=== PATIENT | male | born 1965 | race Caucasian/White ===

== ENCOUNTER 2018-09-18 08:12 | Observation (INO) | payer OTHER, SELFPAY ==
[2018-09-18] VITALS (45 sets, daily range): BP systolic 99–118; BP diastolic 62–80; PULSE 52–84; RESP 11–21; TEMP 36–36.8; O2SAT 94–100
--- NOTE | 2018-09-18 08:24 | DI.CT_ITS ---
SYMPTOM/DIAGNOSIS: CHEST PAIN AND SOB CT CHEST: CT angiography was performed with multi slice acquisition and multi planar and 3D reconstruction. PE CT scan of the chest was performed. There is no evidence of a pulmonary embolus. The thoracic aorta is of normal caliber. No aneurysm or dissection is seen. Heart size is within normal limits. No significant pericardial effusion seen. No findings to suggest right ventricular dysfunction present. No thoracic adenopathy, pleural effusion or pneumothorax is identified. Emphysematous changes are present in the lungs. Bilateral dependent atelectatic changes are seen. Within the upper abdomen there is a 3.1 cm hypodense mass arising from the superior pole of the left kidney. Hounsfield units are 20-24. No acute osseous lesions are identified. IMPRESSION: 1. No evidence of a pulmonary embolus, thoracic aortic aneurysm or dissection. 2. 3.1 cm hypodense mass arising from the superior pole of the left kidney. Further evaluation with renal ultrasound is recommended.
--- NOTE | 2018-09-18 08:31 | ED.GENADUL_ITS ---
Discharge Plan Discharge Details Chief Complaint: Chest Pain Reason For Visit: SAM Primary Care Provider: Russ Hannah ED Provider: Dwaine Sanches Home Meds and New Rx's Prescriptions: No Action trazodone 100 mg Tablet 100 mg PO QPM PRNRF: 0 pantoprazole 40 mg Tablet,Delayed Release (Dr/Ec) 40 mg PO DAILY PRNRF: 0 ibuprofen 600 mg Tablet 600 mg PO BID PRNRF: 0 quetiapine 50 mg Tablet Extended Release 24 Hr 50 mg PO QPM RF: 0 loratadine 10 mg Capsule 10 mg PO DAILY PRNRF: 0 Medical Decision Making 8:35 --52-year-old male former smoker, prisoner, here with persistent chest pain over the past 3 days with associated shortness of breath. Hypoxic today, responding to oxygen administration. 1 nitroglycerin sublingual and aspirin was given by EMS and pain has improved but is still present. Concern for ACS. ECG reviewed and interpreted by me: Normal sinus rhythm 70 bpm, normal axis, T wave inversions noted in V1 and V2, nondiagnostic. Plan to check troponin. Consider acute pulmonary embolism. Patient does have some tenderness although no swelling in his left lower extremity. He does have associated shortness of breath and hypoxia. Plan to proceed to CT chest PE protocol. Will hold additional nitro given BP. 12:00 -- Labs reviewed. CT of the chest interpreted by radiology:IMPRESSION: 1. No evidence of pulmonary embolus to the segmental level. 2. No aneurysm of the aorta. 3. No dissection of the aorta. 4. 3.1 cm mass in the left kidney 24 Hounsfield units. Recommend surgery. The Dictated and Authenticated by: Yasir Al MD. Patient reassessed multiple times. Hemodynamically stable. Patient no longer hypoxic off O2. Initial trop neg - would expect to be elevated at this point given symptom duration. Findings not definitively consistent with ACS. Plan to admit for further diagnostic testing including serial enzymes. I call and spoke with Dr. Mcclellan who will admit. He requested bridging orders be placed to the floor. Care transitioned to Dr. Mcclellan. Second trop pending at time of admission. HPI General Mode of arrival: EMS . Date/Time Provider Initiated Documentation: 09/18/18 09:03 . Limitations to Documentation: no limitations . Information obtained by: EMS . HPI Narrative: 52-year-old male former smoker with history of GERD presents with a chief complaint of chest pain. Patient notes he has had chest pain for the past 3 days. Pain is been fairly persistent but worsening. Pain is localized to his anterior chest. Pain feels like a heaviness. Currently rated 5/10. Pain was worse this morning and was given aspirin at the correctional facility and another dose of aspirin and nitroglycerin sublingual by EMS. No modifiers to pain. He also has associated shortness of breath. EMS note that he was hypoxic in the upper 80s prior to oxygen administration by correctional facility. No recent long distance travel, no immobility, no recent surgery. Related Data Home Medications Medication Instructions Recorded Confirmed ibuprofen 600 mg PO BID PRN 09/18/18 09/18/18 loratadine 10 mg PO DAILY PRN 09/18/18 09/18/18 pantoprazole 40 mg PO DAILY PRN 09/18/18 09/18/18 quetiapine 50 mg PO QPM 09/18/18 09/18/18 trazodone 100 mg PO QPM PRN 09/18/18 09/18/18 Allergies Allergy/AdvReac Type Severity Reaction Status Date / Time No Known Allergies Allergy Unverified 09/18/18 08:29 General Stated Complaint: Chest Pain ADRIAN: 2 Review of Systems Review of Systems All systems reviewed & are unremarkable except as noted in HPI and below Cardiovascular Reports chest pain and Reports dyspnea Respiratory Reports cough and Reports dyspnea PFSH Medical History GERD (gastroesophageal reflux disease) (Chronic) Social History Smoking/Tobacco Use Status: Former Tobacco Use Exam Const General: cooperative and no acute distress [facility] Head: normocephalic and atraumatic Mouth: moist mucous membranes Eyes Conjunctivae: normal conjunctivae Sclera: normal sclerae EOM: EOM intact bilaterally Neck Neck: trachea midline and supple Resp Auscultation: clear to auscultation bilaterally, no rales, no rhonchi and no wheezes Cardio Jugular venous pressure: no JVD Rate: regular rate and not tachycardic Rhythm: regular rhythm GI Palpation: soft, not firm, no guarding, no masses, not rigid and nontender Skin General skin exam: no rashes or lesions noted Neuro General: alert, awake, oriented x3 and tone normal Extrem General: calf tenderness on the left and no edema Psych Appearance: grossly normal Mental Status: mental status grossly normal Speech and Movement: speech and movement normal Course Vital Signs Temperature 36.5 C 09/18/18 08:18 Pulse 68 09/18/18 08:18 Respiratory Rate 15 09/18/18 08:18 Blood Pressure 118/80 09/18/18 08:18 Pulse Oximetry 99 09/18/18 08:18 Temperature 36.5 C 09/18/18 08:18 Temperature Source Temporal Artery Scan 09/18/18 08:18 Pulse 68 09/18/18 08:18 Respiratory Rate 15 09/18/18 08:18 Respiratory Effort Non-Labored 09/18/18 08:26 Blood Pressure 118/80 09/18/18 08:18 Blood Pressure Position Supine 09/18/18 08:18 Pulse Oximetry 99 09/18/18 08:18 Oxygen Delivery Method Room Air 09/18/18 08:18 Oxygen Flow Rate 0 09/18/18 08:18 Pain Level 5 09/18/18 08:18
[2018-09-18] MEDS: Normal Saline Flush 10 ML SYR IVP (08:37)
[2018-09-18 08:39] LABS: Absolute Basophil Count 0.05 k/cumm (0.0-0.2); Absolute Lymphocyte Count 1.91 k/cumm (1.2-3.4); Absolute Monocyte Count 0.44 k/cumm (0.11-0.7); Absolute Neutrophil Count 2.02 k/cumm (1.2-6.7); Basophils % 1.1; Eosinophils % 2.2; HCT 41.8 % (40.0-50.0); HGB 13.9 g/dL (13.5-17.5); Lymphocytes % 42.3; Mean Corp. HGB Concentration 33.3 g/dL (32.0-36.0); Mean Corpuscular Hemoglobin 30.9 pg (27.0-33.0); Mean Corpuscular Volume 92.9 fL (80-95); Monocytes % 9.7; Neutrophils % 44.7; Platelet Count 186 x1000/uL (130-400); RBC Distribution Width 13.4 % (11.8-14.1); White Blood Cell Count 4.52 k/cumm (4.4-10.8)
[2018-09-18 08:53] LABS: ALT 24 U/L (12-78); AST 12 U/L (15-37); Albumin 3.6 g/dL (3.4-5.0); Alkaline Phosphatase 72 U/L (46-116); Anion Gap 7.1 mmol/L (3-11); BUN 11 mg/dL (7-18); Bilirubin, Total 0.6 mg/dL (0.2-1.0); CO2 30.9 mmol/L (21.0-32.0); CREATININE 0.93 mg/dL (0.70-1.30); Calcium 8.7 mg/dL (8.5-10.1); Chloride 105 mmol/L (98-107); Glucose 111 mg/dL (70-100); Magnesium 1.7 mg/dL (1.8-2.4); Potassium 3.6 mmol/L (3.5-5.1); Sodium 143 mmol/L (136-145); Total Protein 6.6 g/dL (6.4-8.2); Troponin I < 0.02 ng/mL (0.00-0.06)
[2018-09-18] MEDS: Omnipaque 350 MG/ML 100 ML BTL IJ (09:40)
--- NOTE | 2018-09-18 09:55 | DI.VRAD_ITS ---
EXAM: CT Angiography Chest With Contrast EXAM DATE/TIME: 09/18/2018 8:30 AM CLINICAL HISTORY: 52 years old, male; Pain and signs and symptoms; Shortness of breath; Chest pain; Type not specified TECHNIQUE: Axial computed tomographic angiography images of the chest with intravenous contrast using CT angiography protocol. All CT scans at this facility use at least one of these dose optimization techniques: automated exposure control; mA and/or kV adjustment per patient size (includes targeted exams where dose is matched to clinical indication); or iterative reconstruction. Coronal and sagittal reformatted images were created and reviewed. MIP reconstructed images were created and reviewed. CONTRAST: 81 ml of Omnipaque 350 administered intravenously. COMPARISON: No relevant prior studies available. FINDINGS: Pulmonary arteries: No evidence of pulmonary embolus to the segmental level. Aorta: No aneurysm of the aorta. No dissection of the aorta. Lungs: Mild panlobular emphysematous changes Bibasilar atelectasis Pleural space: Normal. No pneumothorax. No pleural effusion. Heart: Normal. No cardiomegaly. No pericardial effusion. Kidneys and ureters: 3.1 cm mass in the left kidney 24 Hounsfield units. Lymph nodes: Unremarkable. No enlarged lymph nodes. Bones/joints: Unremarkable. No acute fracture. Soft tissues: Unremarkable. IMPRESSION: 1. No evidence of pulmonary embolus to the segmental level. 2. No aneurysm of the aorta. 3. No dissection of the aorta. 4. 3.1 cm mass in the left kidney 24 Hounsfield units. Recommend surgery. The Dictated and Authenticated by: Yasir Al MD. Ordering:SILVIANO Isidro MD
[2018-09-18 11:10] LABS: NT-proBNP 86 pg/mL
[2018-09-18 12:34] LABS: Troponin I 0.02 ng/mL (0.00-0.06)
[2018-09-18 13:20] LABS: *AMPHETAMINES SCREEN URINE Negative (Negative); *BARBITURATES SCREEN URINE Negative (Negative); *BENZODIAZEPINES SCREEN URINE Negative (Negative); Cannabinoids THC Negative (Negative); Cocaine Screen,Urine Negative (Negative); METHADONE URINE SCREEN Negative (Negative); OPIATES URINE SCREEN Negative (Negative)
[2018-09-18 13:25] LABS: Tricyclic Antidepressants Negative (Negative)
[2018-09-18] MEDS: MAGNESIUM SULFATE 2 GM/50 ML BAG IVPB (15:13)
--- NOTE | 2018-09-18 17:33 | W.PM.HP.N ---
Date of service: 09/18/18 Time of Service: 17:34 Assessment and Plan (1) Chest pain: Current visit: Yes Status: Acute 52-year-old male with recent smoking and new exertional chest pain with dyspnea on exertion raises concern for acute coronary syndrome. Initial evaluation with EKG and troponin x2 in the emergency room is reassuring, however. The patient's initial hypoxia is probably the most concerning aspect of this case. CT of the chest was appropriate and did not show pulmonary emboli, though it was not clear down to the subsegmental level. Patient's history and drug screen not show drug use that could cause acute pulmonary edema that can resolve quickly. I am not sure how to explain the marked hypoxia that resolved, but I do think it prudent to observe the patient given this presentation. (2) Dysphagia: Current visit: Yes Status: Acute Several factors point to esophageal cause of the pain. Patient himself relates his symptoms to the odynophagia and dysphagia he has been experiencing over the past several months. He has had a laryngeal evaluation, but I be more concerned for the esophagus. He has not responded to PPI therapy. He is certainly at risk with binge drinking and smoking for esophageal pathology including malignancy, though no masses were seen on the CT scan of the chest. We will try GI cocktail and possibly Carafate. Consider EGD either acutely or as an outpatient. Patient with hypoxia raises concern for aspiration, though the patient does not describe lonnie aspiration. Will consider swallow evaluation or barium swallow. (3) Smoker: Current visit: Yes Status: Acute Patient is a long-term smoker, and there is a good chance he is still smoking though he does not endorse this in his care shoulder. Will encourage long-term cessation and offer nicotine if he would like it. (4) DVT prophylaxis: Current visit: Yes Status: Acute Lovenox (5) Discharge planning issues: Current visit: Yes Status: Acute Full code. Patient is shackled to the bed with third officer in the room. History of Present Illness Narrative: 52-year-old man with no known cardiac history but several months of difficult and painful swallowing presents from [facility] with progressively worsening chest pain and shortness of breath over the past 2-3 days. Patient describes the pain as midsternal heaviness. It associated with feeling like being he is being choked, dyspnea on exertion, lightheadedness, and some intermittent nausea. There is no radiation. It is constant, and he feels like he cannot get comfortable. It is worse lying flat and better when sitting up. It can be worse when he swallows, and he feels like he is going to choke. He has not had this kind of chest pain before. On presentation in the emergency room, he was hypoxic in the mid 80s on room air. This improved with submental oxygen, but the time he went to the floor he had normal oxygen saturation on room air. He denies feeling anything abnormal, including drugs recently. Patient relates her symptoms to problems swallowing he has had over the past several months. He has been treated for GERD, as he has epigastric discomfort, but he states the proton pump inhibitor just makes it worse and he has been refusing it. He was seen by ENT, who has seen for previous issues with recurrent ear infections, and had a laryngoscopy which was unrevealing per her report. He states he feels like solids sometimes gets stuck, and food is not going down well after he swallows. He states he is lost 17 pounds in the past year and does not eat as much. Review of Systems Review of Systems As above. No fevers or chills. Weight loss as above. Describes general fatigue compared to his baseline. He gets headaches at times, no change recently. No focal numbness or weakness. No sore throat or sores in the mouth. He does have a history of recurrent ear infections with poor hearing in his right ear. Does have occasional cough, and has coughed up blood twice in the past few weeks. He does feel like his heart races with the chest pain. No vomiting. No diarrhea constipation. No blood in the stool or melena. No dysuria or hematuria. No flank pain or new joint pain. No rash or other skin lesions. [facility] Medical History Dysphagia (Acute) GERD (gastroesophageal reflux disease) (Chronic) Surgical History History of tonsillectomy and adenoidectomy (Acute) Social History Smoking/Tobacco Use Status: Former Tobacco Use how long ago did patient quit smokin months alcohol intake: former substance use type: former substance user additional social history: [facility], grew up in [facility] Has a long-term female partner with whom he has 1 child. Has another child with a different partner. 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 Previously drank 12 pack a night on the weekends. Formerly used marijuana, denies IV drug use or inhaled drugs. Meds Home Medications Medication Instructions Recorded Confirmed Type ibuprofen 600 mg PO BID PRN 09/18/18 09/18/18 History loratadine 10 mg PO DAILY PRN 09/18/18 09/18/18 History pantoprazole 40 mg PO DAILY PRN 09/18/18 09/18/18 History quetiapine 50 mg PO QPM 09/18/18 09/18/18 History trazodone 100 mg PO QPM PRN 09/18/18 09/18/18 History Allergies Allergy/AdvReac Type Severity Reaction Status Date / Time No Known Allergies Allergy Unverified 09/18/18 08:29 Exam Narrative Exam Narrative: General: Alert and oriented, speaking in full sentences, no acute distress. HEENT: Normocephalic, atraumatic. Pupils equal round reactive to light with extraocular motion intact. Conjunctive are clear with no icterus. Mucous membranes are moist with oropharynx benign. Neck is supple with no lymphadenopathy or other masses. Normal thyroid exam. Lungs: Clear to auscultation bilaterally with normal effort. Cardiovascular: regular rate and rhythm with no murmurs gallops or rubs. Abdomen: Nondistended. Active bowel sounds. Soft, mildly tender in the epigastrium, but no organomegaly. Extremities show no cyanosis clubbing or edema. No redness or swelling of the joints. Skin has no rashes or other skin lesions. Nose no acute bruising. Neurologic: Cranial nerves grossly intact including movement of palate/uvula. Normal speech and coordination. Normal movement in [address] Chest with contrast: 1. No evidence of pulmonary embolus to the segmental level. 2. No aneurysm of the aorta. 3. No dissection of the aorta. 4. 3.1 cm mass in the left kidney 24 Hounsfield units. Recommend surgery. EKG: NSR, no ST-T abnormalities Results Labs : 09/18/18 08:20 09/18/18 08:20 Laboratory Results - last 24 hr 09/18/18 09/18/18 09/18/18 08:20 08:20 08:20 WBC 4.52 RBC 4.50 Hgb 13.9 Hct 41.8 MCV 92.9 MCH 30.9 MCHC 33.3 RDW 13.4 Plt Count 186 MPV 10.0 Immature Gran % 0.0 Neutrophils % 44.7 Lymphocytes % 42.3 Monocytes % 9.7 Eosinophils % 2.2 Basophils % 1.1 Absolute Neutrophils 2.02 Absolute Lymphocytes 1.91 Absolute Monocytes 0.44 Absolute Eosinophils 0.10 Absolute Basophils 0.05 Sodium 143 Potassium 3.6 Chloride 105 Carbon Dioxide 30.9 Anion Gap 7.1 BUN 11 Creatinine 0.93 Estimated GFR/1.73 m2 >= 60.00 Glucose 111 H Calcium 8.7 Magnesium 1.7 L Total Bilirubin 0.6 AST 12 L ALT 24 Alkaline Phosphatase 72 Troponin I < 0.02 NT-Pro-B Natriuret Pep 86 Total Protein 6.6 Albumin 3.6 Urine Opiates Screen Urine Methadone Screen Ur Barbiturates Screen Ur Tricyclics Screen Ur Amphetamines Screen U Benzodiazepines Scrn Urine Cocaine Screen Ur THC Screen 09/18/18 09/18/18 12:11 13:00 WBC RBC Hgb Hct MCV MCH MCHC RDW Plt Count MPV Immature Gran % Neutrophils % Lymphocytes % Monocytes % Eosinophils % Basophils % Absolute Neutrophils Absolute Lymphocytes Absolute Monocytes Absolute Eosinophils Absolute Basophils Sodium Potassium Chloride Carbon Dioxide Anion Gap BUN Creatinine Estimated GFR/1.73 m2 Glucose Calcium Magnesium Total Bilirubin AST ALT Alkaline Phosphatase Troponin I 0.02 NT-Pro-B Natriuret Pep Total Protein Albumin Urine Opiates Screen Negative Urine Methadone Screen Negative Ur Barbiturates Screen Negative Ur Tricyclics Screen Negative Ur Amphetamines Screen Negative U Benzodiazepines Scrn Negative Urine Cocaine Screen Negative Ur THC Screen Negative Last Vital Signs Temp 36.2 C L 09/18/18 15:58 Pulse 56 L 09/18/18 15:58 Resp 13 09/18/18 15:58 BP 109/68 09/18/18 15:58 Pulse Ox 97 09/18/18 15:58
--- NOTE | 2018-09-18 17:52 | HPE_ITS ---
Date of service: 09/18/18 Time of Service: 17:34 Assessment and Plan (1) Chest pain: Current visit: Yes Status: Acute 52-year-old male with recent smoking and new exertional chest pain with dyspnea on exertion raises concern for acute coronary syndrome. Initial evaluation with EKG and troponin x2 in the emergency room is reassuring, however. The patient's initial hypoxia is probably the most concerning aspect of this case. CT of the chest was appropriate and did not show pulmonary emboli, though it was not clear down to the subsegmental level. Patient's history and drug screen not show drug use that could cause acute pulmonary edema that can resolve quickly. I am not sure how to explain the marked hypoxia that resolved, but I do think it prudent to observe the patient given this presentation. (2) Dysphagia: Current visit: Yes Status: Acute Several factors point to esophageal cause of the pain. Patient himself relates his symptoms to the odynophagia and dysphagia he has been experiencing over the past several months. He has had a laryngeal evaluation, but I be more concerned for the esophagus. He has not responded to PPI therapy. He is certainly at risk with binge drinking and smoking for esophageal pathology including malignancy, though no masses were seen on the CT scan of the chest. We will try GI cocktail and possibly Carafate. Consider EGD either acutely or as an outpatient. Patient with hypoxia raises concern for aspiration, though the patient does not describe lonnie aspiration. Will consider swallow evaluation or barium swallow. (3) Smoker: Current visit: Yes Status: Acute Patient is a long-term smoker, and there is a good chance he is still smoking though he does not endorse this in his care shoulder. Will encourage long-term cessation and offer nicotine if he would like it. (4) DVT prophylaxis: Current visit: Yes Status: Acute Lovenox (5) Discharge planning issues: Current visit: Yes Status: Acute Full code. Patient is shackled to the bed with state patrol officer in the room. History of Present Illness Narrative: 52-year-old man with no known cardiac history but several months of difficult and painful swallowing presents from [facility] with progressively worsening chest pain and shortness of breath over the past 2-3 days. Patient describes the pain as midsternal heaviness. It associated with feeling like being he is being choked, dyspnea on exertion, lightheadedness, and some intermittent nausea. There is no radiation. It is constant, and he feels like he cannot get comfortable. It is worse lying flat and better when sitting up. It can be worse when he swallows, and he feels like he is going to choke. He has not had this kind of chest pain before. On presentation in the emergency room, he was hypoxic in the mid 80s on room air. This improved with submental oxygen, but the time he went to the floor he had normal oxygen saturation on room air. He denies feeling anything abnormal, including drugs recently. Patient relates her symptoms to problems swallowing he has had over the past several months. He has been treated for GERD, as he has epigastric discomfort, but he states the proton pump inhibitor just makes it worse and he has been refusing it. He was seen by ENT, who has seen for previous issues with recurrent ear infections, and had a laryngoscopy which was unrevealing per her report. He states he feels like solids sometimes gets stuck, and food is not going down well after he swallows. He states he is lost 17 pounds in the past year and does not eat as much. Review of Systems Review of Systems As above. No fevers or chills. Weight loss as above. Describes general fatigue compared to his baseline. He gets headaches at times, no change recently. No focal numbness or weakness. No sore throat or sores in the mouth. He does have a history of recurrent ear infections with poor hearing in his right ear. Does have occasional cough, and has coughed up blood twice in the past few weeks. He does feel like his heart races with the chest pain. No vomiting. No diarrhea constipation. No blood in the stool or melena. No dysuria or hematuria. No flank pain or new joint pain. No rash or other skin lesions. [facility] Medical History Dysphagia (Acute) GERD (gastroesophageal reflux disease) (Chronic) Surgical History History of tonsillectomy and adenoidectomy (Acute) Social History Smoking/Tobacco Use Status: Former Tobacco Use how long ago did patient quit smokin months alcohol intake: former substance use type: former substance user additional social history: Currently at [facility] farmKris N[facility]z lived in [place], grew up in [facility] [place] [facility] Has a long-term female partner with whom he has 1 child. Has another child with a different partner. Before incarceration, was working in [employer] Has [id number] history of smoking, states quit when he was incarcerated, but admits he has to be careful with what he tells me in front of the government guard. Previously drank 12 pack a night on the weekends. Formerly used marijuana, denies IV drug use or inhaled drugs. Meds Home Medications Medication Instructions Recorded Confirmed Type ibuprofen 600 mg PO BID PRN 09/18/18 09/18/18 History loratadine 10 mg PO DAILY PRN 09/18/18 09/18/18 History pantoprazole 40 mg PO DAILY PRN 09/18/18 09/18/18 History quetiapine 50 mg PO QPM 09/18/18 09/18/18 History trazodone 100 mg PO QPM PRN 09/18/18 09/18/18 History Allergies Allergy/AdvReac Type Severity Reaction Status Date / Time No Known Allergies Allergy Unverified 09/18/18 08:29 Exam Narrative Exam Narrative: General: Alert and oriented, speaking in full sentences, no acute distress. HEENT: Normocephalic, atraumatic. Pupils equal round reactive to light with extraocular motion intact. Conjunctive are clear with no icterus. Mucous membranes are moist with oropharynx benign. Neck is supple with no lymphadenopathy or other masses. Normal thyroid exam. Lungs: Clear to auscultation bilaterally with normal effort. Cardiovascular: regular rate and rhythm with no murmurs gallops or rubs. Abdomen: Nondistended. Active bowel sounds. Soft, mildly tender in the epigastrium, but no organomegaly. Extremities show no cyanosis clubbing or edema. No redness or swelling of the joints. Skin has no rashes or other skin lesions. Nose no acute bruising. Neurologic: Cranial nerves grossly intact including movement of palate/uvula. Normal speech and coordination. Normal movement in [address] Chest with contrast: 1. No evidence of pulmonary embolus to the segmental level. 2. No aneurysm of the aorta. 3. No dissection of the aorta. 4. 3.1 cm mass in the left kidney 24 Hounsfield units. Recommend surgery. EKG: NSR, no ST-T abnormalities Results Labs : 09/18/18 08:20 09/18/18 08:20 Laboratory Results - last 24 hr 09/18/18 09/18/18 09/18/18 08:20 08:20 08:20 WBC 4.52 RBC 4.50 Hgb 13.9 Hct 41.8 MCV 92.9 MCH 30.9 MCHC 33.3 RDW 13.4 Plt Count 186 MPV 10.0 Immature Gran % 0.0 Neutrophils % 44.7 Lymphocytes % 42.3 Monocytes % 9.7 Eosinophils % 2.2 Basophils % 1.1 Absolute Neutrophils 2.02 Absolute Lymphocytes 1.91 Absolute Monocytes 0.44 Absolute Eosinophils 0.10 Absolute Basophils 0.05 Sodium 143 Potassium 3.6 Chloride 105 Carbon Dioxide 30.9 Anion Gap 7.1 BUN 11 Creatinine 0.93 Estimated GFR/1.73 m2 >= 60.00 Glucose 111 H Calcium 8.7 Magnesium 1.7 L Total Bilirubin 0.6 AST 12 L ALT 24 Alkaline Phosphatase 72 Troponin I < 0.02 NT-Pro-B Natriuret Pep 86 Total Protein 6.6 Albumin 3.6 Urine Opiates Screen Urine Methadone Screen Ur Barbiturates Screen Ur Tricyclics Screen Ur Amphetamines Screen U Benzodiazepines Scrn Urine Cocaine Screen Ur THC Screen 09/18/18 09/18/18 12:11 13:00 WBC RBC Hgb Hct MCV MCH MCHC RDW Plt Count MPV Immature Gran % Neutrophils % Lymphocytes % Monocytes % Eosinophils % Basophils % Absolute Neutrophils Absolute Lymphocytes Absolute Monocytes Absolute Eosinophils Absolute Basophils Sodium Potassium Chloride Carbon Dioxide Anion Gap BUN Creatinine Estimated GFR/1.73 m2 Glucose Calcium Magnesium Total Bilirubin AST ALT Alkaline Phosphatase Troponin I 0.02 NT-Pro-B Natriuret Pep Total Protein Albumin Urine Opiates Screen Negative Urine Methadone Screen Negative Ur Barbiturates Screen Negative Ur Tricyclics Screen Negative Ur Amphetamines Screen Negative U Benzodiazepines Scrn Negative Urine Cocaine Screen Negative Ur THC Screen Negative Last Vital Signs Temp 36.2 C L 09/18/18 15:58 Pulse 56 L 09/18/18 15:58 Resp 13 09/18/18 15:58 BP 109/68 09/18/18 15:58 Pulse Ox 97 09/18/18 15:58
[2018-09-18] MEDS: Sucralfate 1 GM TAB PO (22:12)
[2018-09-19 00:05] VITALS: PULSE 54
[2018-09-19 00:08] VITALS: BP 107/67; PULSE 67; RESP 18; TEMP 36.4; O2SAT 97
[2018-09-19 03:15] VITALS: BP 106/68; PULSE 58; RESP 17; TEMP 36.9; O2SAT 94
[2018-09-19 07:03] VITALS: PULSE 57
[2018-09-19] MEDS: Sucralfate 1 GM TAB PO ×2 (08:05→10:52)
[2018-09-19] MEDS: Pantoprazole 40 MG TABCR PO (08:05)
[2018-09-19] MEDS: Acetaminophen 325 MG TAB PO (08:05)
[2018-09-19 08:06] VITALS: BP 104/64; PULSE 59; RESP 20; TEMP 37.2; O2SAT 94
[2018-09-19] MEDS: Ibuprofen 600 MG TAB PO (10:52)
--- NOTE | 2018-09-19 10:52 | W.PM.DS.N ---
Date of service: 09/19/18 Time of Service: 10:53 DS: Diagnosis Discharge Diagnosis (1) Chest pain: Status: Acute (2) Dysphagia: Status: Acute (3) Smoker: Status: Acute (4) DVT prophylaxis: Status: Acute (5) Discharge planning issues: Status: Acute Discharge Plan Disposition [facility] Dis[facility] Condition: Stable Discharge Details Reason For Visit: CHEST PAIN,SHORTNESS OF BREATH Admit Date/Time: 09/18/18 11:59 Admit Provider: Joel Mcclellan Attending Provider: Joel Mcclellan Primary Care Provider: Russ Hannah Hospital Course Hospital Course: 52-year-old man, in correctional facility, with significant smoking history presented with 2-3 days of chest pain and shortness of breath. He was initially hypoxic to the upper 80s oxygen saturation on room air upon presentation, but this resolved without intervention while in the emergency room. CT of the chest was negative for pulmonary embolus to the segmental level, did not show aneurysms or dissection or significant lung or thoracic pathology. It did show a kidney mass. EKG was normal and troponins were negative x2. No events were noted on bus driver/monitor and hypoxia or shortness of breath did not recur. Symptoms appear to be related to swallowing, the patient has been getting a workup for globus sensation as an outpatient. GI cocktail did not improve symptoms. Patient reported proton pump inhibitor made symptoms worse. He was started on Carafate. He should continue this evaluation as an outpatient, including an endoscopy, as he reports some significant weight loss. Esophageal pathology was not seen on CT scan. Carafate may help esophagitis, but condition such as candidal or herpes esophagitis are also possible and an EGD could help diagnose these. Home Meds and New Rx's Prescriptions: New sucralfate 1 gram Tablet 1 g PO AC & HS Qty: 120 RF: 0 Continued trazodone 100 mg Tablet 100 mg PO QPM PRNRF: 0 quetiapine 50 mg Tablet Extended Release 24 Hr 50 mg PO QPM RF: 0 loratadine 10 mg Capsule 10 mg PO DAILY PRNRF: 0 Discontinued pantoprazole 40 mg Tablet,Delayed Release (Dr/Ec) 40 mg PO DAILY PRNRF: 0 ibuprofen 600 mg Tablet 600 mg PO BID PRNRF: 0 Discharge Instructions Instructions: Noncardiac Chest Pain (DC) Additional Instructions: Plan to pursue endoscopy to look at esophogus and stomach as an outpatient Stand Alone Forms: Nursing Discharge Form Activity:: Activity as Tolerated Equipment/Supplies:: No Equipment Needed Diet:: As Tolerated Discharge Orders Discharge Orders: Discharge Order (Routine); Ordered 09/19/18 Ordered By: Joel Mcclellan Discharge Data Discharge Date/Time-TO BE ENTERED AT DEPARTURE: 09/19/18 10:52 Exam Narrative Exam Narrative: General: Alert and oriented, speaking in full sentences, no acute distress. HEENT: Conjunctive are clear with no icterus. Mucous membranes are moist with oropharynx benign. Neck is supple with no lymphadenopathy or other masses. Lungs: Clear to auscultation bilaterally with normal effort. Cardiovascular: regular rate and rhythm with no murmurs gallops or rubs. Chest wall nontender. Abdomen: Nondistended. Active bowel sounds. Soft, non-tender Extremities show no cyanosis clubbing or edema. Skin has no rashes or other skin lesions. Nose no acute bruising. DS: Data Vitals/I&O Vitals and I&O: Vital Signs Temperature 37.2 C 09/19/18 08:06 Temperature Source Tympanic 09/19/18 08:06 Pulse 59 L 09/19/18 08:06 Pulse Rhythm Regular 09/18/18 19:52 Pulse 57 L 09/18/18 11:40 Respiratory Rate 20 09/19/18 08:06 Respiratory Effort 09/18/18 19:52 Respiratory Depth Normal 09/18/18 19:52 Respiratory Pattern Normal 09/18/18 19:52 Blood Pressure 104/64 09/19/18 08:06 Blood Pressure Mean 78 09/18/18 11:16 Blood Pressure Position Supine 09/18/18 08:18 Pulse Oximetry 94 L 09/19/18 08:06 Oxygen Delivery Method Room Air 09/19/18 08:06 Oxygen Flow Rate 0 09/19/18 08:06 Fraction of Inspired Oxygen (FIO2) 99 09/18/18 08:47 Pain Level 6 09/19/18 08:06 Comment 09/19/18 08:06 Intake & Output 09/18/18 09/18/18 09/19/18 11:59 23:59 11:59 Intake Total 50 / 50 Balance 50 / 50 Weight 88.8 kg 88.8 kg 88.4 kg Intake: IV 50 / 50 Other: Urine Color Yellow Urine Appearance Clear Urine Odor Normal Voiding Methods Toilet Labs on day of discharge: Labs from last 24 hours 09/18/18 09/18/18 09/18/18 13:00 12:11 08:20 Troponin I 0.02 NT-Pro-B Natriuret Pep 86 Urine Opiates Screen Negative Urine Methadone Screen Negative Ur Barbiturates Screen Negative Ur Tricyclics Screen Negative Ur Amphetamines Screen Negative U Benzodiazepines Scrn Negative Urine Cocaine Screen Negative Ur THC Screen Negative PFSH Medical History Dysphagia (Acute) GERD (gastroesophageal reflux disease) (Chronic) Surgical History History of tonsillectomy and adenoidectomy (Acute) Social History Smoking/Tobacco Use Status: Former Tobacco Use how long ago did patient quit smokin months alcohol intake: former substance use type: former substance user additional [facility] history[facility] lived in [place], grew up in [facility] Has a long-term female partner with whom he has 1 child. Has another child with a different partner. Before incarceration, was working in [employer] Has [id number] history of smoking, states quit when he was incarcerated, but admits he has to be careful with what he tells me in front of the adult crossing guard. Previously drank 12 pack a night on the weekends. Formerly used marijuana, denies IV drug use or inhaled drugs.
--- NOTE | 2018-09-19 10:55 | DSE_ITS ---
Date of service: 09/19/18 Time of Service: 10:53 DS: Diagnosis Discharge Diagnosis (1) Chest pain: Status: Acute (2) Dysphagia: Status: Acute (3) Smoker: Status: Acute (4) DVT prophylaxis: Status: Acute (5) Discharge planning issues: Status: Acute Discharge Plan Disposition Patient Disposition: [facility] Condition: Stable Discharge Details Reason For Visit: CHEST PAIN,SHORTNESS OF BREATH Admit Date/Time: 09/18/18 11:59 Admit Provider: Joel Mcclellan Attending Provider: Joel Mcclellan Primary Care Provider: Russ Hannah Hospital Course Hospital Course: 52-year-old man, in correctional facility, with significant smoking history presented with 2-3 days of chest pain and shortness of breath. He was initially hypoxic to the upper 80s oxygen saturation on room air upon presentation, but this resolved without intervention while in the emergency room. CT of the chest was negative for pulmonary embolus to the segmental level, did not show aneurysms or dissection or significant lung or thoracic pathology. It did show a kidney mass. EKG was normal and troponins were negative x2. No events were noted on gambling monitor and hypoxia or shortness of breath did not recur. Symptoms appear to be related to swallowing, the patient has been getting a workup for globus sensation as an outpatient. GI cocktail did not improve symptoms. Patient reported proton pump inhibitor made symptoms worse. He was started on Carafate. He should continue this evaluation as an outpatient, including an endoscopy, as he reports some significant weight loss. Esophageal pathology was not seen on CT scan. Carafate may help esophagitis, but condition such as candidal or herpes esophagitis are also possible and an EGD could help diagnose these. Home Meds and New Rx's Prescriptions: New sucralfate 1 gram Tablet 1 g PO AC & HS Qty: 120 RF: 0 Continued trazodone 100 mg Tablet 100 mg PO QPM PRNRF: 0 quetiapine 50 mg Tablet Extended Release 24 Hr 50 mg PO QPM RF: 0 loratadine 10 mg Capsule 10 mg PO DAILY PRNRF: 0 Discontinued pantoprazole 40 mg Tablet,Delayed Release (Dr/Ec) 40 mg PO DAILY PRNRF: 0 ibuprofen 600 mg Tablet 600 mg PO BID PRNRF: 0 Discharge Instructions Instructions: Noncardiac Chest Pain (DC) Additional Instructions: Plan to pursue endoscopy to look at esophogus and stomach as an outpatient Stand Alone Forms: Nursing Discharge Form Activity:: Activity as Tolerated Equipment/Supplies:: No Equipment Needed Diet:: As Tolerated Discharge Orders Discharge Orders: Discharge Order (Routine); Ordered 09/19/18 Ordered By: Joel Mcclellan Discharge Data Discharge Date/Time-TO BE ENTERED AT DEPARTURE: 09/19/18 10:52 Exam Narrative Exam Narrative: General: Alert and oriented, speaking in full sentences, no acute distress. HEENT: Conjunctive are clear with no icterus. Mucous membranes are moist with oropharynx benign. Neck is supple with no lymphadenopathy or other masses. Lungs: Clear to auscultation bilaterally with normal effort. Cardiovascular: regular rate and rhythm with no murmurs gallops or rubs. Chest wall nontender. Abdomen: Nondistended. Active bowel sounds. Soft, non-tender Extremities show no cyanosis clubbing or edema. Skin has no rashes or other skin lesions. Nose no acute bruising. DS: Data Vitals/I&O Vitals and I&O: Vital Signs Temperature 37.2 C 09/19/18 08:06 Temperature Source Tympanic 09/19/18 08:06 Pulse 59 L 09/19/18 08:06 Pulse Rhythm Regular 09/18/18 19:52 Pulse 57 L 09/18/18 11:40 Respiratory Rate 20 09/19/18 08:06 Respiratory Effort 09/18/18 19:52 Respiratory Depth Normal 09/18/18 19:52 Respiratory Pattern Normal 09/18/18 19:52 Blood Pressure 104/64 09/19/18 08:06 Blood Pressure Mean 78 09/18/18 11:16 Blood Pressure Position Supine 09/18/18 08:18 Pulse Oximetry 94 L 09/19/18 08:06 Oxygen Delivery Method Room Air 09/19/18 08:06 Oxygen Flow Rate 0 09/19/18 08:06 Fraction of Inspired Oxygen (FIO2) 99 09/18/18 08:47 Pain Level 6 09/19/18 08:06 Comment 09/19/18 08:06 Intake & Output 09/18/18 09/18/18 09/19/18 11:59 23:59 11:59 Intake Total 50 / 50 Balance 50 / 50 Weight 88.8 kg 88.8 kg 88.4 kg Intake: IV 50 / 50 Other: Urine Color Yellow Urine Appearance Clear Urine Odor Normal Voiding Methods Toilet Labs on day of discharge: Labs from last 24 hours 09/18/18 09/18/18 09/18/18 13:00 12:11 08:20 Troponin I 0.02 NT-Pro-B Natriuret Pep 86 Urine Opiates Screen Negative Urine Methadone Screen Negative Ur Barbiturates Screen Negative Ur Tricyclics Screen Negative Ur Amphetamines Screen Negative U Benzodiazepines Scrn Negative Urine Cocaine Screen Negative Ur THC Screen Negative PFSH Medical History Dysphagia (Acute) GERD (gastroesophageal reflux disease) (Chronic) Surgical History History of tonsillectomy and adenoidectomy (Acute) Social History Smoking/Tobacco Use Status: Former Tobacco Use how long ago did patient quit smokin months alcohol intake: former substance use type: former substance user additional [facility] history: [facility] lived in [place], grew up in [facility] Has a long-term female partner with whom he has 1 child. Has another child with a different partner. Before incarceration, was working in [employer] Has [id number] history of smoking, states quit when he was incarcerated, but admits he has to be careful with what he tells me in front of the day guard. Previously drank 12 pack a night on the weekends. Formerly used marijuana, denies IV drug use or inhaled drugs.
[2018-09-19 12:08] VITALS: PULSE 65
--- NOTE | 2018-09-19 12:43 | PDOC.CMIN ---
Care Management Initial Assess REASON FOR HOSPITALIZATION:: Chest Pain, SOB PAST MEDICAL HISTORY/PAST SURGICAL HISTORY:: Dysphagia, ERD, Tonsillectomy, Adenoidectomy PREVIOUS FUNCTIONAL STATUS/SOCIAL/FAMILY SUPPORTS:: Inmate at the [facility] CURRENT FUNCTIONAL STATUS:: Shackled to bed. Eyelet Punch Operator in attendance. Independent at baseline. ADVANCE DIRECTIVES:: None on file Has patient been provided with information about the portal?: No Did the patient sign up for the portal?: No CODE STATUS:: Full Code INSURANCE COVERAGE / FINANCIAL ISSUES:: [facility] CURRENT HOME/COMMUNITY SERVICES/EQUIPMENT:: None PRIMARY CARE PHYSICIAN:: [facility] POTENTIAL DISCHARGE NEEDS:: None PATIENT/FAMILY EDUCATION NEEDS:: Discharge insructions and follow up appointments ANTICIPATED BARRIERS TO DISCHARGE:: None TRANSPORTATION:: [facility] PLAN:: Return to Correctional facility when medically cleared for discharge.
--- NOTE | 2018-09-19 12:58 | INITIAL_ITS ---
Care Management Initial Assess REASON FOR HOSPITALIZATION:: Chest Pain, SOB PAST MEDICAL HISTORY/PAST SURGICAL HISTORY:: Dysphagia, ERD, Tonsillectomy, Adenoidectomy PREVIOUS FUNCTIONAL STATUS/SOCIAL/FAMILY SUPPORTS:: Inmate at the [facility] CURRENT FUNCTIONAL STATUS:: Shackled to bed. Dairy Equipment Mechanic in attendance. Independent at baseline. ADVANCE DIRECTIVES:: None on file Has patient been provided with information about the portal?: No Did the patient sign up for the portal?: No CODE STATUS:: Full Code INSURANCE COVERAGE / FINANCIAL ISSUES:: [facility] CURRENT HOME/COMMUNITY SERVICES/EQUIPMENT:: None PRIMARY CARE PHYSICIAN:: [facility] POTENTIAL DISCHARGE NEEDS:: None PATIENT/FAMILY EDUCATION NEEDS:: Discharge insructions and follow up appointments ANTICIPATED BARRIERS TO DISCHARGE:: None TRANSPORTATION:: [facility] PLAN:: Return to Correctional facility when medically cleared for discharge.
--- NOTE | 2018-09-19 12:58 | PDOC.CMDIS ---
LACE Index Scoring Tool - Questions: Length of Stay (in days): 1 Acuity (Admit via E.D.?): Yes E.D. Visits: 1 - Answers: Total Score: 5 Risk of Readmission: Low Risk Care Management Discharge Reason for Hospitalization: Chest Pain, SOB Discharge Plan: Return to [facility] Patient/Family Education Needs: Discharge instructions
== END 2018-09-19 12:25 | disposition home or self-care (01) ==
LOC: ER 12:37 → MS 13:06
PROVIDERS: Admitting Provider Family Medicine; Emergency Provider Student in an Organized Health Care Education/Training Program; PCP Physician Assistant; Visit Provider Family Medicine
DX: R07.9 Chest pain, unspecified (principal); R06.02 Shortness of breath; R13.10 Dysphagia, unspecified; F17.210 Nicotine dependence, cigarettes, uncomplicated; R09.02 Hypoxemia
CPT/HCPCS: 36415; 71275; 80053; 80307; 93005; 99219; 99239; 99285; 83735; 83880; 84484; 85025; 93010; G0378; J3490

== ENCOUNTER 2018-09-26 13:57 | Day surgery (SDC) | payer OTHER, MEDICAID, SELFPAY ==
[2018-09-26] VITALS (14 sets, daily range): BP systolic 108–131; BP diastolic 53–88; PULSE 57–79; RESP 4–18; TEMP 36.7–37; O2SAT 80–100
--- NOTE | 2018-09-26 14:14 | W.ED.GENAD ---
Discharge Plan Disposition Patient Disposition: [facility] Condition: Stable Discharge Details Chief Complaint: SOB Clinical Impression: Globus sensation, Edema glottis Attending Provider: Ama Lemos Primary Care Provider: Russ Hannah ED Provider: Onel Hanna Medical Decision Making This is a 52-year-old male who presents today for evaluation of globus sensation and difficulty swallowing. The patient has a history of a globus sensation for the last few months, CT scan that was performed on his last ER visit showed no significant abnormality. He did have a notable kidney mass, but no other significant abnormalities. He had ENT follow-up which showed no significant abnormalities on laryngoscopy. He has been having difficulty with solids, however you noted an acute change that occurred today. He had breakfast and this was difficult, however at lunch is only able to get his first by down for which she notably choked was unable to get anything after that. He is tolerating his secretions well, he is able to drink but with apparent notable difficulty. However he is unable to get anything solid down a small bite of crackers was ineffective to completely swallow. He had notable gagging and coughing after this. Because of the concern for esophageal impaction, in conjunction with strictures glucagon was given the patient had no resolution with this. We have contacted surgery and discussed the case with Dr. Lemos, she will bring the patient to the OR for further endoscopic evaluation. We will get a CT scan of the neck as which was initially ordered and recommended by Dr. Leigh on an outpatient basis but has not yet been performed. 5:50 PM Patient was brought down to the OR, and unfortunately while in the OR they were unable to pass the endotracheal tube after multiple attempts. They were able to easily get up past the cords however they could not advance the 7 oh tube past this secondary to a mass of unknown origin. During this event the patient did have some stridorous breath sounds, he was given 1 DuoNeb treatment, as well as 100 mg of hydrocortisone. The patient was an easy bagging ventilation, and maintained good oxygen saturations per the OR staff. After the patient's paralytics and sedation medication wore off he was brought back to the ER. Because of the inability to secure the airway, and a notable mass per the nurse window caser staff when trying to advance the endotracheal tube it is felt that the patient is not appropriate for treatment and management here at our facility. Dr. Lemos agrees, and feels that transfer would be more appropriate which I think is certainly appropriate in this current scenario. When the patient arrived back in the emergency department he maintained good oxygen saturations. 4 L of supplemental oxygen were placed for safety. 1 dose of racemic epinephrine was given as a precaution. The patient continues to have no stridorous breath sounds. He is able to control his secretions well still. No evidence of significant hypoxemia, no signs of airway compromise at this time. Since the patient is easy to bag valve mask, a and he is clearly extremely hard intubation, I do not feel that continued attempts at intubation are indicated, and in fact I feel that they are contraindicated with her current limited resources. CT scan results have returned and are somewhat misleading with a relatively benign sounding report of mild hyperplasia in the pharynx, and at the base of the tongue however on the sagittal view of the CT scan it is clear that there is a notable anterior tracheal and posterior tracheal mass which will completely obfuscated and block the path of normal endotracheal tube. I did contact the ENT at [facility], and spoke with Dr. Billingsley, as well as the emergency room physician Dr. Villalobos. They both felt that transfer is both indicated and necessary. They do agree to avoid intubation unless absolutely medically necessary. They would like the patient transferred to [facility] emergency department for further evaluation. Patient will be transferred by [facility] for ENT evaluation. I have extensively reviewed the treatment plan with the patient. I have addressed all patient concerns at this time. I have also discussed the plan with the admitting physician and they agree with the current assessment and plan and have agreed to assume responsibility for the patient. All parties demonstrate verbal understanding and agreement with our assessment and plan at this time. Upon my evaluation, this patient had a high probability of imminent or life-threatening deterioration, which required my direct attention, intervention, and personal management. I have personally provided 30 minutes of critical care time exclusive of time spent on separately billable procedures. Time includes review of laboratory data, radiology results, discussion with consultants, and monitoring for potential decompensation. Interventions were performed as documented above. FINDINGS: Oropharynx: Normal. No significant tonsillar enlargement. Hypopharynx: There is mild asymmetric thickening of the left hypopharynx extending to the pyriformis sinus. Larynx: Normal. Normal epiglottis. Submandibular/Parotid glands: Normal. Glands are normal in size. Thyroid: Normal. No enlarged or calcified nodules. Lymph nodes: There is mild lymphoid hyperplasia at the tongue base. Lung apices: COPD seen in the lung apices. Vasculature: No acute findings. Bones/joints: Normal. No acute fracture. Soft tissues: Normal. No significant soft tissue swelling. IMPRESSION: Mild lymphoid hyperplasia at the tongue base with possible pharyngitis. Chest x-ray findings Findings: Lungs: The lungs are hyperaerated and hyperlucent. There appears to be some minimal platelike atelectasis at the left lung base, retrocardiac. Pleural space: Unremarkable. No pleural effusion. No pneumothorax. Heart/Mediastinum: Unremarkable. No cardiomegaly. Bones/joints: Unremarkable. Impression: Minimal left lower lobe atelectasis. COPD. EKG 14: 35 Rate 72, intervals normal, sinus rhythm, no ST elevations or depressions, inverted T waves in V1. No Q waves. HPI General Date/Time Provider Initiated Documentation: 09/26/18 14:12. HPI Narrative: This is a 52-year-old male with a past medical history of reflux, who presents today for evaluation of difficulty swallowing. The patient was seen and assessed here a few weeks ago for some chest pain and pressure with an associated globus sensation in his throat. He had a cardiac workup a few weeks ago here in the emergency department. Serial troponins, and CT angiogram of the chest were negative at that time. He did have evidence of a notable renal mass. He has not followed up for this. The patient did follow-up with the ENT for flexible laryngoscopy, which showed no significant abnormalities. Dr. Leigh did want an outpatient CT scan, however this is not yet been performed. The patient has been having difficulty eating since then. He states that he always feels like he has a hard time swallowing and getting food down, however he had a notable worsening of his symptoms starting this morning. He had pancakes for breakfast at which time he felt that he was choking down every bite. He was able to get a few bites down, but stopped because of the difficulty. At lunch she was having a chicken brandi after the first bite he began choking profusely and was unable to get any more down. He has been able to tolerate his secretions and get liquids down however he has been unable and unwilling to take any solids down since then. Patient does admit to a throat and upper chest fullness like sensation as well as a heaviness in that area. He denies any exertional chest pain, or arm pain. He states that the symptoms that he has currently are in no way as severe as they were when he had his cardiac workup here last time. He is uncertain if he has had reflux in the past but he does have a history of a burning sensation and fullness in his throat. Aside for the kidney mass, he denies any history of cancer. He denies any specific vomiting, diarrhea, fever, or chills. He does admit to some mild to moderate weight loss over the last few weeks. He has no other complaints at this time. He denies any IV or illicit drug use. He denies any recent surgeries Related Data Home Medications Medication Instructions Recorded Confirmed loratadine 10 mg PO DAILY PRN 09/18/18 09/26/18 quetiapine 50 mg PO QPM 09/18/18 09/26/18 trazodone 100 mg PO QPM PRN 09/18/18 09/26/18 sucralfate 1 g PO AC & HS #120 tab 09/19/18 09/26/18 Previous Rx's Medication Instructions Recorded sucralfate 1 g PO AC & HS #120 tab 09/19/18 Allergies Allergy/AdvReac Type Severity Reaction Status Date / Time No Known Allergies Allergy Unverified 09/26/18 14:20 General Stated Complaint: SOB ADRIAN: 3 Review of Systems Review of Systems All systems reviewed & are unremarkable except as noted in HPI and below [facility] Medical History Dysphagia (Acute) GERD (gastroesophageal reflux disease) (Chronic) Surgical History History of tonsillectomy and adenoidectomy (Acute) Social History Smoking/Tobacco Use Status: Former Tobacco Use how long ago did patient quit smokin months alcohol intake: former substance use type: former substance user additional social history: [facility]ris Nunez lived in [place], grew up in [place] Has a long-term female partner with whom he has 1 child. Has another child with a different partner. Before incarceration, was working in [employer] Has [id number] history of smoking, states quit when he was incarcerated, but admits he has to be careful with what he tells me in front of the watchguard. Previously drank 12 pack a night on the weekends. Formerly used marijuana, denies IV drug use or inhaled drugs. Exam Narrative Exam Narrative: 1.Const: Well-nourished, Well-developed, appearing stated age 2.Eyes: PERRL, no conjunctival injection, and symmetrical lids. 3.ENT: Atraumatic external nose and ears. Moist MM. Neck: Symmetric, trachea midline, No thyromegaly. Evaluation of the posterior oropharynx demonstrates no mass, no uvula deviation, no evidence of airway compromise. No significant mass can be palpated on the neck. No significant cervical lymphadenopathy, lumps or bumps. Patient demonstrates good movement of cervical neck. There is no nuchal rigidity, no nuchal tenderness. Patient is able to flex the neck without any difficulty or significant pain. Negative Kernig's and Brudzinski sign. Radial pulses are +2 and equal bilaterally. 4.CVS: +S1/S2, No murmurs or gallops. Peripheral pulses 2+ and equal in all extremities. Brisk capillary refill in all extremities. 5.RESP: Unlabored respiratory effort. Minimal crackles in the left lung morrison, no wheezes or rhonchi. No significant reproducible chest pain. 6.GI: Soft, Nontender/Nondistended, No hepatosplenomegaly. No guarding or rebound. 7.MSK: Normocephalic/Atraumatic, Extremities w/o deformity or ttp No cyanosis or clubbing, Normal movement of all extremities 8.Skin: Warm, Dry. No rashes or lesions. 9.Neuro: activities leader II-XII grossly intact. Sensation grossly intact, no focal neurologic deficits. 10.Psych: (AAO) x3. Appropriate mood and affect Course Vital Signs Temperature 37.0 C 09/26/18 14:06 Pulse 73 09/26/18 14:06 Respiratory Rate 16 09/26/18 14:06 Blood Pressure 129/88 09/26/18 14:06 Pulse Oximetry 100 09/26/18 14:06 Temperature 37.0 C 09/26/18 14:06 Temperature Source Skin 09/26/18 14:06 Pulse 73 09/26/18 14:06 Respiratory Rate 16 09/26/18 14:06 Respiratory Effort Non-Labored 09/26/18 14:08 Blood Pressure 129/88 09/26/18 14:06 Pulse Oximetry 100 09/26/18 14:06 Pain Level 8 09/26/18 14:06
--- NOTE | 2018-09-26 14:15 | DI.RAD_ITS ---
SYMPTOM/DIAGNOSIS: COUGH, THROAT OBSTRUCTION, CRACKLES LEFT SIDE PORTABLE AP CHEST: 09/26/18 The heart is not enlarged. The lungs are clear and well expanded. CONCLUSION: No evidence of acute disease.
--- NOTE | 2018-09-26 14:30 | W.SURGCON ---
Date of service: 09/26/18 Time of Service: 14:30 Assessment and Plan (1) Dysphagia: Current visit: No Status: Acute 52 year old with history of GERD who comes in complaining of chocking episode after eating a chicken brandi. Able to swallow his secretions. Able to swallow water although with difficulty. P\\ See is Glucan works If unable to swallow water after the glucagon will do an EGD and then D/C back to intermediate History of Present Illness Chief Complaint: Unable to swallow Narrative: Mr. Richmond is a 52 year old prisoner who was brought to the ER with complaint of difficulty breathing and choking on food. He was here recently with chest pain and cardiac workup was negative. He states that he ate pancakes this morning with difficulty. At lunch time he tried to eat a chicken brandi and chocked on it. He is able to swallow his own secretions. He can swallow water with difficulty. He is getting some Glucagon chelle now. Review of Systems Constitutional Denies fever(s) Cardiovascular Denies chest pain, Denies rapid heart rate, Denies palpitations and Denies dyspnea Respiratory Denies cough and Denies dyspnea Gastrointestinal Reports as per HPI Endocrine Denies palpitations [facility] Medical History Dysphagia (Acute) GERD (gastroesophageal reflux disease) (Chronic) Surgical History History of tonsillectomy and adenoidectomy (Acute) Social History Smoking/Tobacco Use Status: Former Tobacco Use how long ago did patient quit smokin months alcohol intake: former substance use type: former substance user additional social history: [facility] lived in [place], grew up in [facility] Has a long-term female partner with whom he has 1 child. Has another child with a different partner. Before incarceration, was working in [employer] Has [id number] history of smoking, states quit when he was incarcerated, but admits he has to be careful with what he tells me in front of the gate guard. Previously drank 12 pack a night on the weekends. Formerly used marijuana, denies IV drug use or inhaled drugs. Exam Const General: cooperative HENMT Mouth: other (white spot noted in back of throat. No food bolus seen) Eyes Pupils: PERRL Resp Effort & Inspection: normal respiratory effort Auscultation: clear to auscultation bilaterally Cardio Rate: regular rate Rhythm: regular rhythm Heart Sounds: no gallops, no murmurs and no rubs GI Inspection: normal to inspection Palpation: soft and nontender Auscultation: normal bowel sounds Results Last Vital Signs Temp 98.6 F 09/26/18 14:06 Pulse 73 09/26/18 14:06 Resp 18 09/26/18 14:20 BP 129/88 09/26/18 14:06 Pulse Ox 100 09/26/18 14:06 Labs : 09/26/18 14:13 09/26/18 14:13
--- NOTE | 2018-09-26 14:39 | SCONE_ITS ---
Date of service: 09/26/18 Time of Service: 14:30 Assessment and Plan (1) Dysphagia: Current visit: No Status: Acute 52 year old with history of GERD who comes in complaining of chocking episode after eating a chicken brandi. Able to swallow his secretions. Able to swallow water although with difficulty. P\\ See is Glucan works If unable to swallow water after the glucagon will do an EGD and then D/C back to skilled nursing History of Present Illness Chief Complaint: Unable to swallow Narrative: Mr. Richmond is a 52 year old prisoner who was brought to the ER with complaint of difficulty breathing and choking on food. He was here recently with chest pain and cardiac workup was negative. He states that he ate pancakes this morning with difficulty. At lunch time he tried to eat a chicken brandi and chocked on it. He is able to swallow his own secretions. He can swallow water with difficulty. He is getting some Glucagon chelle now. Review of Systems Constitutional Denies fever(s) Cardiovascular Denies chest pain, Denies rapid heart rate, Denies palpitations and Denies dyspnea Respiratory Denies cough and Denies dyspnea Gastrointestinal Reports as per HPI Endocrine Denies palpitations [facility] Medical History Dysphagia (Acute) GERD (gastroesophageal reflux disease) (Chronic) Surgical History History of tonsillectomy and adenoidectomy (Acute) Social History Smoking/Tobacco Use Status: Former Tobacco Use how long ago did patient quit smokin months alcohol intake: former substance use type: former substance user additional social history: [facility] farm[facility]ris Nunez lived in [place], grew up in [facility] Has a long-term female partner with whom he has 1 child. Has another child with a different partner. Before incarceration, was working in [email or web address] Has [id number] history of smoking, states quit when he was incarcerated, but admits he has to be careful with what he tells me in front of the correctional guard. Previously drank 12 pack a night on the weekends. Formerly used marijuana, denies IV drug use or inhaled drugs. Exam Const General: cooperative HENMT Mouth: other (white spot noted in back of throat. No food bolus seen) Eyes Pupils: PERRL Resp Effort & Inspection: normal respiratory effort Auscultation: clear to auscultation bilaterally Cardio Rate: regular rate Rhythm: regular rhythm Heart Sounds: no gallops, no murmurs and no rubs GI Inspection: normal to inspection Palpation: soft and nontender Auscultation: normal bowel sounds Results Last Vital Signs Temp 98.6 F 09/26/18 14:06 Pulse 73 09/26/18 14:06 Resp 18 09/26/18 14:20 BP 129/88 09/26/18 14:06 Pulse Ox 100 09/26/18 14:06 Labs : 09/26/18 14:13 09/26/18 14:13
[2018-09-26 14:40] LABS: Abs Immature Grans 0.01 k/cumm (0.0-0.09); Absolute Basophil Count 0.07 k/cumm (0.0-0.2); Absolute Eosinophil Count 0.06 k/cumm (0.0-0.7); Absolute Lymphocyte Count 2.58 k/cumm (1.2-3.4); Absolute Monocyte Count 0.86 k/cumm (0.11-0.7); Absolute Neutrophil Count 4.17 k/cumm (1.2-6.7); Basophils % 0.9; Eosinophils % 0.8; HCT 38.1 % (40.0-50.0); HGB 13.1 g/dL (13.5-17.5); Immature Grans % 0.1; Lymphocytes % 33.3; Mean Corp. HGB Concentration 34.4 g/dL (32.0-36.0); Mean Corpuscular Volume 90.1 fL (80-95); Mean Platelet Volume 9.8 fL (8.0-11.0); Monocytes % 11.1; Neutrophils % 53.8; Platelet Count 210 x1000/uL (130-400); RBC 4.23 m/cumm (4.50-6.00); White Blood Cell Count 7.75 k/cumm (4.4-10.8)
[2018-09-26 14:52] LABS: ALT 23 U/L (12-78); AST 10 U/L (15-37); Albumin 3.8 g/dL (3.4-5.0); Alkaline Phosphatase 77 U/L (46-116); Anion Gap 8.4 mmol/L (3-11); BUN 15 mg/dL (7-18); Bilirubin, Total 0.5 mg/dL (0.2-1.0); CO2 27.6 mmol/L (21.0-32.0); CREATININE 1.06 mg/dL (0.70-1.30); Calcium 8.8 mg/dL (8.5-10.1); Chloride 104 mmol/L (98-107); Glucose 93 mg/dL (70-100); Potassium 3.4 mmol/L (3.5-5.1); Sodium 140 mmol/L (136-145); Total Protein 6.8 g/dL (6.4-8.2)
[2018-09-26 14:53] LABS: INR 1.1 (1.0-3.5); PTT Activated 22.8 sec (21.0-31.4); Prothrombin Time 11.1 sec (9.3-11.0)
[2018-09-26 15:01] LABS: Troponin I < 0.02 ng/mL (0.00-0.06)
--- NOTE | 2018-09-26 15:22 | DI.VRAD_ITS ---
EXAM: XR Chest, 1 View EXAM DATE/TIME: 09/26/2018 2:16 PM CLINICAL HISTORY: 52 years old, male; Signs and symptoms; Cough; Patient HX: Cough, throat obstruction, cracles left side TECHNIQUE: XR of the chest, 1 view. Portable exam. COMPARISON: CT Private^PE (Adult) 09/18/2018 9:05 AM FINDINGS: Lungs: The lungs are hyperaerated and hyperlucent. There appears to be some minimal platelike atelectasis at the left lung base, retrocardiac. Pleural space: Unremarkable. No pleural effusion. No pneumothorax. Heart/Mediastinum: Unremarkable. No cardiomegaly. Bones/joints: Unremarkable. IMPRESSION: Minimal left lower lobe atelectasis. COPD. COMMENT: Preliminary interpretation is based on receipt of 1 image(s). A final report will be issued subsequently. Dictated and Authenticated by: Sylvia Gilliland MD. Ordering:DINA Sykes MD
[2018-09-26] MEDS: Omnipaque 350 MG/ML 100 ML BTL IJ (16:01)
--- NOTE | 2018-09-26 16:03 | DI.CT_ITS ---
SYMPTOM/DIAGNOSIS: GLOBUS SENSATION CERVICAL CT: 09/26/18 CT examination of the cervical region was performed with intravenous infusion of 100 cc Omnipaque 350. Images obtained through the upper chest show unremarkable appearance of the lungs and superior mediastinal structures. Visualized trachea appears intact. There is no evidence of epiglottitis, nor is there any abnormality in the region of the vocal cords. Note is made of some left sided soft tissue prominence in the hypopharynx extending to the piriform sinus on the left, the findings could be secondary to inflammatory process, no gross cervical mass or adenopathy seen. CONCLUSION: No evidence of epiglottitis. Abnormal contour of left hypopharynx/piriform sinus, nonspecific finding but it could represent inflammatory process vs neoplasia. Additional evaluation with direct laryngoscopy suggested.
--- NOTE | 2018-09-26 16:15 | DI.VRAD_ITS ---
EXAM: CT Neck With Contrast EXAM DATE/TIME: 09/26/2018 2:53 PM CLINICAL HISTORY: 52 years old, male; Signs and symptoms; Other: Globus sensation; Patient HX: Globus sensation. No known trauma TECHNIQUE: Axial computed tomography images of the neck with intravenous contrast. Coronal and sagittal reformatted images were created and reviewed. COMPARISON: No relevant prior studies available. FINDINGS: Oropharynx: Normal. No significant tonsillar enlargement. Hypopharynx: There is mild asymmetric thickening of the left hypopharynx extending to the pyriformis sinus. Larynx: Normal. Normal epiglottis. Submandibular/Parotid glands: Normal. Glands are normal in size. Thyroid: Normal. No enlarged or calcified nodules. Lymph nodes: There is mild lymphoid hyperplasia at the tongue base. Lung apices: COPD seen in the lung apices. Vasculature: No acute findings. Bones/joints: Normal. No acute fracture. Soft tissues: Normal. No significant soft tissue swelling. IMPRESSION: Mild lymphoid hyperplasia at the tongue base with possible pharyngitis. COMMENT: Preliminary interpretation is based on receipt of 183 image(s). A final report will be issued subsequently. Dictated and Authenticated by: Sylvia Gilliland MD. Ordering:DINA Sykes MD
--- NOTE | 2018-09-26 16:35 | W.PM.OP ---
Date of service: 09/26/18 Time of Service: 16:35 Operative Note DATE OF PROCEDURE: 09/26/18 PRE-OP DIAGNOSIS: Dysphagia/? foreign body in the esophagus POST-OP DIAGNOSIS: other (Difficult airway) PROCEDURE: None SURGEON: Ama Lemos ANESTHESIA: GETAvery ESTIMATED BLOOD LOSS: 1 PATHOLOGY: none sent COMPLICATIONS: Other (Unable to intubate patient and development of Laryngeal spasm) Patient was transported to: other (ER) Patient's condition: critical Indications: Mr. Richmond is a 52 year old male who was brought in today complaining of inabuility to swallow and choking on food as well as difficulty breathing Findings: None Procedure Description: Patient was take to the OR and placed under general anesthesia. 2 attempts were made to intubate the patient first with a 7.5 ET tube and then with a 7 ET tube without success. The patient was bagged and he went into laryngeal spasm and his lungs were tight. He was given a DUO neb and some Hydrocortizone. Once he woke up and the succ wore off he was moving air. Lungs were clear. EGD was aborted. Once awake and stable patient was taken back to the ER for transfer to [facility] for further care.
--- NOTE | 2018-09-26 16:42 | ROE_ITS ---
Date of service: 09/26/18 Time of Service: 16:35 Operative Note DATE OF PROCEDURE: 09/26/18 PRE-OP DIAGNOSIS: Dysphagia/? foreign body in the esophagus POST-OP DIAGNOSIS: other (Difficult airway) PROCEDURE: None SURGEON: Ama Lemos ANESTHESIA: GETAvery ESTIMATED BLOOD LOSS: 1 PATHOLOGY: none sent COMPLICATIONS: Other (Unable to intubate patient and development of Laryngeal spasm) Patient was transported to: other (ER) Patient's condition: critical Indications: Mr. Richmond is a 52 year old male who was brought in today complaining of inabuility to swallow and choking on food as well as difficulty breathing Findings: None Procedure Description: Patient was take to the OR and placed under general anesthesia. 2 attempts were made to intubate the patient first with a 7.5 ET tube and then with a 7 ET tube without success. The patient was bagged and he went into laryngeal spasm and his lungs were tight. He was given a DUO neb and some Hydrocortizone. Once he woke up and the succ wore off he was moving air. Lungs were clear. EGD was aborted. Once awake and stable patient was taken back to the ER for transfer to [facility] or [facility] for further care.
--- NOTE | 2018-09-26 16:43 | RESPIRATORY ---
09/26/2018-RT overhead stat paged to OR for pt. Elsi verbally ordered by Dr. Sharifa Lemos. Gordo tx placed on Pt with mask . MICHI Downey took over Pt's gordo tx.
== END 2018-09-26 17:58 | disposition short-term general hospital (02) ==
LOC: ER 15:07 → SUR 15:49
PROVIDERS: Emergency Provider Student in an Organized Health Care Education/Training Program; PCP Physician Assistant; Visit Provider Surgery
PROC: 0DJ68ZZ Inspection of Stomach, Via Natural or Artificial Opening Endoscopic (ICD-10-PCS; CPT 43235; principal; 2018-09-26 15:20)
DX: R13.10 Dysphagia, unspecified (principal); J38.5 Laryngeal spasm; Z53.09 Procedure and treatment not carried out because of other contraindication; F45.8 Other somatoform disorders; J38.4 Edema of larynx; R93.3 Abnormal findings on diagnostic imaging of other parts of digestive tract; K21.9 Gastro-esophageal reflux disease without esophagitis
CPT/HCPCS: 43235; 36415; 70491; 80053; 93005; 94640; 96372; 99253; 99291; 71045; 84484; 85025; 85610; 85730; 93010; J1610; J1720; J3010; J3490

== ENCOUNTER 2019-02-14 00:18 | Outpatient (CLI) | payer OTHER, SELFPAY ==
--- NOTE | 2019-02-14 09:13 | DI.US_ITS ---
SYMPTOM/DIAGNOSIS: MASS LT KIDNEY RENAL ULTRASOUND: Comparison is made with chest CT dated 09/18/18 which showed a 3.1 cm. mass at the upper pole of the left kidney. The right kidney shows a normal size and echogenicity with a measurement of 11 cm. in length. A tiny cyst is seen at the lower pole measuring 9 mm. There is no evidence of stones or hydronephrosis. The left kidney shows a solid mass at the superior pole with increased vascularity measuring 3.2 by 3.4 by 2.7 cm. A small cyst is also seen at the lower pole of the left kidney measuring 9 mm. No stones or hydronephrosis is seen. The prevoid bladder volume measures 140 cc's. There is a 2 cc post void residual. No bladder masses or bladder calcifications are seen. The prostate volume is 18 cc's. IMPRESSION: Suspicious appearing mass measuring 3.4 cm. at the upper pole of the left kidney.
== END 2019-02-14 00:38 ==
PROVIDERS: PCP Physician Assistant; Visit Provider Nurse Practitioner Adult Health
DX: N28.89 Other specified disorders of kidney and ureter (principal); N28.1 Cyst of kidney, acquired
CPT/HCPCS: 76770

== ENCOUNTER 2019-07-11 01:16 | Outpatient (CLI) | payer OTHER, SELFPAY ==
[2019-07-11 08:35] LABS: CREATININE 0.96 mg/dL (0.70-1.30)
[2019-07-11] MEDS: Gadoterate meglumine 20 ML VIAL 17 ML IVP (08:55)
--- NOTE | 2019-07-11 09:24 | DI.MRI_ITS ---
EXAM: MR ABDOMEN WO/W CLINICAL HISTORY: SOLID MASS SUPERIOR POLE LT KIDNEY,CYST LOWER POLE. TECHNIQUE: Multiplanar multisequence MRI was performed. COMPARISON: CT chest PE CTA from 09/18/2018 CT neck w from 09/26/2018 CT neck w from 09/26/2018 FINDINGS: MR of the abdomen was performed utilizing renal scanning protocol including multiphase post contrast T1 weighted imaging. Incidental right lobe anterior hepatic cyst noted. Otherwise liver spleen and pancreas are unremarkable. Gallbladder and bile ducts appear normal. No abdominal adenopathy as vis ualized. Tiny incidental lower pole right renal cyst noted. 3 cm in diameter mass of upper pole of left kidney noted as seen prior ultrasound and CT. This shows signal pattern and enhancement pattern consistent with renal cell carcinoma. No additional renal mass identified. No evidence of obstruct ion. Renal vein grossly unremarkable as visualized. IMPRESSION: Findings highly suggestive of malignancy, likely renal cell carcinoma, of left upper renal pole.
[2019-07-11] MEDS: Normal Saline Flush 10 ML SYR IVP (10:46)
== END 2019-07-11 01:36 ==
PROVIDERS: PCP Physician Assistant; Visit Provider Nurse Practitioner Adult Health
DX: N28.89 Other specified disorders of kidney and ureter (principal); N28.1 Cyst of kidney, acquired; Z13.89 Encounter for screening for other disorder
CPT/HCPCS: 74183; 82565